=== PATIENT | male | born 1965 | race Caucasian/White ===

== ENCOUNTER 2024-07-30 05:15 | Emergency (ER) | payer OTHER ==
[~2024-07-30] VITALS: Ht 172.7 cm; Wt 100.0 kg
[2024-07-30 05:15] VITALS: O2SAT 99
[~2024-07-30 05:15] MED LIST: ASPI-785; ATOR10TA; COR3; LISI1POW
[2024-07-30] MEDS: SODIUM CHLORIDE 0.9% 1,000 ML IV ONE (06:27)
[2024-07-30] MEDS: IOHEXOL-350 100 ML BOTTLE ONE (06:28)
[2024-07-30 07:00] LABS: BASOPHILS % 1.1 % (0.0-2.0); EOSINOPHILS % 2.8 % (0.0-5.0); HEMATOCRIT. 44.7 % (42.0-52.0); HEMOGLOBIN. 14.8 g/dL (14.0-18.0); LYMPHOCYTES % 32.2 % (20.0-50.0); MEAN CORPUSCULAR HEMOGLOBIN 28.6 pg (28.0-32.0); MEAN CORPUSCULAR HGB CONC 33.1 g/dL (31.0-37.0); MEAN CORPUSCULAR VOLUME 86.3 fL (80.0-94.0); MEAN PLATELET VOLUME 8.9 fl (7.4-10.4); MONOCYTES % 5.3 % (2.0-8.0); NEUTROPHILS % 58.6 % (40.0-76.0); PLATELET 300 x1000/uL (130-400); RED BLOOD CELL COUNT 5.18 mill/uL (4.7-6.1); RED CELL DISTRIBUTION WIDTH 14.8 % (11.6-14.6); WHITE BLOOD COUNT 9.2 x1000/uL (4.5-11.0)
[2024-07-30 07:11] LABS: CHLORIDE 103 mEq/L (98-107); POTASSIUM 3.6 mEq/L (3.5-5.1); SODIUM 139 mEq/L (136-145)
[2024-07-30] MEDS: LABETALOL 5MG/ML 4ML INJ IV ONE (07:11)
[2024-07-30 07:12] LABS: CALCIUM 9.2 mg/dL (8.7-10.4); CARBON DIOXIDE 23 mEq/L (21-32)
[2024-07-30 07:17] LABS: CREATININE 1.1 mg/dL (0.6-1.3); GLUCOSE 214 mg/dL (70-105); UREA NITROGEN BLOOD 13 mg/dL (9-23)
[2024-07-30 07:18] LABS: LACTIC ACID 2.4 mmol/L (0.4-2.0); PROTHROMBIN TIME 10.5 sec (9.6-11.0)
[2024-07-30 07:44] VITALS: BP 147/100; PULSE 73; RESP 18; TEMP 36.4; O2SAT 99
[2024-07-30 08:03] LABS: ETHANOL BLOOD < 10 mg/dL (<10); TROPONIN I HIGH SENSITIVITY 202 ng/L (3.0-53)
== END 2024-07-30 07:57 | disposition short-term general hospital (02) ==
LOC: ER 05:15
DX: R41.82 Altered mental status, unspecified (principal); E78.00 Pure hypercholesterolemia, unspecified; E87.20 Acidosis, unspecified; Z86.73 Personal history of transient ischemic attack (TIA), and cerebral infarction without residual deficits
CPT/HCPCS: 80048; 80320; 83605; 85025; 85610; 87040; 84484; 36415; 71045; 70496; 70498; 70450; 93005; 96361; 96374; 99291; Q9967; J3490; J7030; G0480